=== PATIENT | male | born 1965 | race Caucasian/White ===

== ENCOUNTER → 2018-12-03 | Outpatient (CLI) | payer OTHER ==
[2015-03-31 16:30] VITALS: BP 116/83
[~2018-12-03] MED LIST: DOCU-109 PO; DULO60CA6 PO; HYDR-2679 PO; LOSA100T14 PO
[2018-12-04 03:09] LABS: HEMOGLOBIN A1C 5.4 % (4.8-5.6)
== END | disposition home or self-care (01) ==
LOC: LAB 12:36
PROVIDERS: ATTEND Family Medicine
DX: E11.9 Type 2 diabetes mellitus without complications (principal); R94.6 Abnormal results of thyroid function studies
CPT/HCPCS: 36415; 83036; 84436; 84443

== ENCOUNTER → 2019-01-17 | Outpatient (CLI) | payer OTHER ==
[2015-03-31 16:30] VITALS: BP 116/83
--- NOTE | 2019-01-17 17:12 | KCIC ---
Examination: Ultrasound thyroid HISTORY: History of thyromegaly COMPARISON: None available. Findings: The right lobe of thyroid gland measures 4.2 x1.4 x 1.4 cm. The left lobe of the thyroid gland measures 4.2 x 1.4 x 1.6 cm. The isthmus measures 2.6 mm in AP dimension. A hypoechoic lymph nodes identified in the left neck with the largest measuring 2 cm. IMPRESSION: 1. Normal-appearing thyroid gland. 2. A hypoechoic 2 cm lymph node identified in the left neck. Nonspecific. Recommend CT neck with IV contrast if clinically feasible for further evaluation. Electronically signed by: Jose Rios MD (01/17/2019 5:10 PM) [id number]
== END | disposition home or self-care (01) ==
LOC: KCIC US 15:00
PROVIDERS: ATTEND Family Medicine
DX: E01.0 Iodine-deficiency related diffuse (endemic) goiter (principal)
CPT/HCPCS: 76536

== ENCOUNTER → 2019-01-24 | Outpatient (CLI) | payer OTHER ==
[2015-03-31 16:30] VITALS: BP 116/83
[~2019-01-24] MED LIST changes: +CONTRAST GIVEN. MC PRN; +IOHEXOL 300 MG/ML 100ML VIAL. IV ONE
--- NOTE | 2019-01-24 10:34 | RAD ---
CT SOFT TISSUE NECK W/CONTRAST History: Follow-up enlarged lymph node. Technique: CT imaging was performed of the neck soft tissues with contrast. Coronal and sagittal reconstructions were performed. Contrast: 70 mL Omnipaque 300 IV contrast. Exposure: One or more of the following individualized dose reduction techniques were utilized for this examination: 1. Automated exposure control 2. Adjustment of the mA and/or kV according to patient size 3. Use of iterative reconstruction technique. Comparison: Ultrasound January 17, 2019 Findings: Previously identified left level 5 the lymph node measures 0.8 cm anterior posterior by 0.9 cm transverse by 1.7 cm craniocaudal. Several additional smaller lymph nodes bilaterally. No pathologically enlarged lymph nodes. No evidence of necrotic lymphadenopathy. Mild adenoidal tonsillar hypertrophy. Normal appearance of the bilateral submandibular and parotid glands. Unremarkable thyroid gland. No pathologic lymphadenopathy. Normal appearance of the nasopharynx, hypopharynx and laryngeal structures. Imaged lung apices are unremarkable. Right maxillary sinus mucous retention cyst. Otherwise, the imaged paranasal sinuses are clear. Mastoid air cells are clear. Chest orbits are unremarkable. Right quadrigeminal plate lipoma incidentally noted. Otherwise, imaged intracranial contents are unremarkable. Multilevel cervical spondylosis most prominent C3-C4 C5-C6 and C6-C7. Impression: 1. Borderline enlarged left deep cervical chain lymph node corresponding with the ultrasound finding. No pathologically enlarged or necrotic lymphadenopathy. Recommend continued clinical follow-up. If further clinical concern recommend ultrasound follow-up. 2. Right quadrigeminal plate lipoma incidentally noted. 3. Multilevel cervical spondylosis. Electronically signed by: Manuel Armenta DO (01/24/2019 10:31 AM) [id number]
== END | disposition home or self-care (01) ==
LOC: CT 09:06
PROVIDERS: ATTEND Family Medicine
DX: M47.812 Spondylosis without myelopathy or radiculopathy, cervical region (principal); J35.1 Hypertrophy of tonsils; J34.1 Cyst and mucocele of nose and nasal sinus; D17.0 Benign lipomatous neoplasm of skin and subcutaneous tissue of head, face and neck; R59.0 Localized enlarged lymph nodes
CPT/HCPCS: 70491; Q9967